=== PATIENT | female | born 1960 | race Caucasian/White ===

== ENCOUNTER 2022-10-27 10:00 | Outpatient (RCR) | payer MEDICARE, OTHER ==
[~2022-10-27 10:00] MED LIST: CELEBREX200 MG PO; CYMBALTA60 MG PO; LOSARTAN POTASS25 MG PO; LOVENOX40 MG/0.4 SC; NABUMETONE500 MG PO; ULTRAM 50MG50 MG PO
== END 2022-11-01 ==
LOC: PT 10:00
PROVIDERS: ATTEND Physician Assistant
DX: Z47.1 Aftercare following joint replacement surgery (principal); Z96.651 Presence of right artificial knee joint; M62.81 Muscle weakness (generalized); R26.2 Difficulty in walking, not elsewhere classified; M25.661 Stiffness of right knee, not elsewhere classified

== ENCOUNTER 2022-11-30 13:58 | Outpatient (RCR) | payer OTHER | END 2022-12-02 | LOC: PT 13:58 | PROVIDERS: ATTEND Physician Assistant | DX: Z47.1 Aftercare following joint replacement surgery (principal); Z96.651 Presence of right artificial knee joint ==

== ENCOUNTER 2022-12-14 10:00 | Outpatient (RCR) | payer OTHER | END 2023-01-01 | LOC: PT 10:00 | PROVIDERS: ATTEND Physician Assistant | DX: Z47.1 Aftercare following joint replacement surgery (principal); Z96.651 Presence of right artificial knee joint ==